=== PATIENT | female | born 1960 | race Caucasian/White ===

== ENCOUNTER → 2024-06-25 | Outpatient (CLI) | payer OTHER, SELFPAY ==
--- NOTE | 2024-06-25 | IMM_PTH ---
PATIENT: FRANCESCA SKELTON LOC: [facility] U#:[id number] AGE/SX: 63/F ROOM: RE06/25/[address]: Dr. Crescencio Hardy MD : 1960 BED: DIS: 06/25/2024 SPEC #: [id number] RECD: 06/27/24 10:55 STATUS: KAYLEY REQ #: [id number] BRENDA: 06/25/24 00:[address]: Crescencio Hardy DEPT: IMMUNOHISTOCHEMISTRY RECD BY: Siva Wu ENTERED: 06/27/24 10:56 SP TYPE: IMMUNO OTHR DR: TIBURCIO Acosta Tissues: Left breast, NOS Procedures: E-CAD (initial) CALPONIN-1 (add) CK8 (add) Pankeratin (add) P40 (add) PHYSICIAN & INSTITUTION [place] [id number] SPECIMEN INFORMATION: Tissue Source: Left breast tissue Clinical Info: Left breast tissue Specimen Number: [id number] CPT code: 80982,00638t6 METHODOLOGY: Deparaffinized sections of prefer/formalin-fixed tissue or PAP/DQ stained slides are incubated with monoclonal/polyclonal antibodies/oligonucleotide probes. Localization is made via biotin free immunoperoxidase method. Appropriate controls are performed and reacted as expected. Results on target cell population are indicated in the following table: RESULTS: ANTIBODY / CLONE RESULT E-Cad (ECH-6) positive AE1-3 (AE1/AE3/PCK26) positive CK8 (69bvlhE19) positive Calponin-1 (MK420E) negative P40 (BC28) negative These tests were developed and their performance characteristics determined by [facility]. They may not have been cleared or approved by the U.S. Food and Drug Administration. The FDA has determined that such clearance or approval is not necessary. The above immunohistochemical/dualISH markers are ordered and reviewed by the Pathologist. INTERPRETATION: Left breast tissue, core biopsy: Invasive ductal carcinoma. MIHAI. 06/30/2024
--- NOTE | 2024-06-25 13:40 | BRBX_PTH ---
PATIENT: FRANCESCA SKELTON LOC: [facility] U#:[id number] AGE/SX: 63/F ROOM: RE06/25/[address]: Dr. Crescencio Hardy MD : 1960 BED: DIS: 06/25/2024 SPEC #: [id number] RECD: 06/25/24 14:37 STATUS: KAYLEY CORNELIUSLucien #: [id number] BRENDA: 06/25/24 13:[address]: Crescencio Hardy DEPT: SURGICAL PATHOLOGY RECD BY: Tahmina Earl ENTERED: 06/26/24 08:09 SP TYPE: BREAST BX OTHR DR: TIBURCIO Acosta Tissues: Left breast, NOS Procedures: Surgery Specimen Level V HEADER OPERATION: Left breast biopsy PRE-OP DIAGNOSIS: Left breast mass TISSUE SUBMITTED: Left breast tissue Ischemic Time: 1 minute Fixation Time: 7 hours MICROSCOPIC DIAGNOSIS Left breast mass, core biopsy: Invasive ductal carcinoma. See cancer summary in the comment. SJ.mr 06/27/2024 COMMENT INVASIVE BREAST CANCER SUMMARY: Procedure: Core biopsy Specimen Laterality: Left Tumor site: Not specified Histologic type: Invasive ductal carcinoma, not otherwise specified Provisional Histologic grade: Glandular/tubule Differentiation Score: 1 Nuclear Pleomorphism Score: 1 Mitotic Rate Score: 1 Overall grade - Grade 1 (score 3) Tumor Size (greatest dimension): Invasive carcinoma measures 0.1cm greatest length. Ductal Carcinoma In situ: Not identified Angiolymphatic Invasion: Not identified Microcalcifications: Present in the non-neoplastic tissue Additional Findings: Fibrocystic changes and adenosis. Breast Marker Study: Not performed in biopsy due to small size of invasive ductal carcinoma and will be performed in excisional specimen. The above summary is in compliance with [employer] [place] Pathology (CAP) Cancer Protocols Checklist and [place] Joint Committee on Cancer (AJCC), Staging Manual, 8th Ed. Immunohistochemistry ([id number]) supports the above diagnosis. This case was discussed with Dr. Hardy on 06/30/2024. MICROSCOPIC DESCRIPTION Slides are reviewed. GROSS DESCRIPTION Received in fixative is one container labeled with the patient's name and designated Left breast tissue. The specimen consists of four fragments of tissue that in aggregate measure 2 x 0.7 x 0.1 cm. The specimen is totally submitted in one cassette. DEANN/ 06/26/2024 TC:0 CPT:55583
== END | disposition home or self-care (01) ==
PROVIDERS: Referring Provider Surgery; Visit Provider Surgery
DX: C50.912 Malignant neoplasm of unspecified site of left female breast (principal)
CPT/HCPCS: 88307; 88341; 88342

== ENCOUNTER 2024-07-17 15:21 | Observation (INO) | payer SELFPAY, OTHER ==
[2024-07-17] VITALS (14 sets, daily range): BP systolic 131–144; BP diastolic 63–85; PULSE 72–97; RESP 12–18; TEMP 36–37.1; O2SAT 95–100; BMI 27.0
--- NOTE | 2024-07-17 | IMM_PTH ---
PATIENT: FRANCESCA SKELTON LOC: MS3 U#:[id number] AGE/SX: 63/F ROOM: MI312 RE07/17/[address]: Dr. Crescencio Hardy MD : 1960 BED: 1 DIS: 07/18/2024 SPEC #: [id number] RECD: 07/23/24 11:14 STATUS: KAYLEY REQ #: [id number] BRENDA: 07/17/24 00:[address]: Crescencio Hardy DEPT: IMMUNOHISTOCHEMISTRY RECD BY: Siva Wu ENTERED: 07/23/24 11:16 SP TYPE: IMMUNO OTHR DR: TIBURCIO Acosta Tissues: A - Axillary lymph node, NOS B - Left breast, NOS Procedures: CALPONIN-1 (add) CK5-6 (add) CK7 (add) CK8 (add) E-CAD (add) HER2 CONCHA (add) KI-67 (add) P53 (add) OK (add) Pankeratin (initial) Pankeratin (add) P40 (add) ER (initial) PHYSICIAN & [address] [address] SPECIMEN INFORMATION: Tissue Source: A- Left axillary lymph node, B- Left breast Clinical Info: Invasive ductal carcinoma of left breast Specimen Number: [id number] A, B-7 CPT code: 55483z4,05353a0 ,[id number] METHODOLOGY: Deparaffinized sections of prefer/formalin-fixed tissue or PAP/DQ stained slides are incubated with monoclonal/polyclonal antibodies/oligonucleotide probes. Localization is made via biotin free immunoperoxidase method. Appropriate controls are performed and reacted as expected. Results on target cell population are indicated in the following table: RESULTS: ANTIBODY / CLONE RESULT Block A 1 AE1-3 (AE1/AE3/PCK26) negative CK7 (OV-TL12/30) negative Block A 2 AE1-3 (AE1/AE3/PCK26) negative CK7 (OV-TL12/30) negative Block B 7 E-Cad (ECH-6) positive CK8 (71syagV14) positive Calponin-1 (EI711A) negative CK5-6 (D5 & 1684) negative P40 (BC28) negative P53 (DO-7) negative (null pattern) Ki-67 (30-9) positive, low, ~10% MORPHOMETRIC ANALYSIS ER (clone 6F11) >95%, strong intensity OK (clone 16/1E2) >95%, moderate to strong intensity Her-2Neu (clone CB11) 2+ The prognostic test for HER2 is performed on formalin-fixed paraffin embedded tissue. A 3+ (positive) staining pattern is defined as intense, homogeneous, complete, circumferential membranous staining in >10% of contiguous tumor cells. A similar weak (2+) staining pattern is interpreted as equivocal. GEOFFREY follow-up testing is recommended for all equivocal cases. Positivity/negativity for ER/OK is reported if > or < 1% of the tumor cells are immuno- reactive, respectively. The ASCO/CAP criteria is used for scoring. Reference: Journal of Clinical Oncology, 2013; 31:3607-6952 & 2010; 16:1086-7784. Ischemic time: Less than one hour. Duration of fixation: __ Hrs; Sample Adequate: Yes. These assays have not been validated on decalcified tissues. Results should be interpreted with caution given the likelihood of false negativity on decalcified specimens or fixation greater than 72 hours. Alternative testing methods (FISH/dualISH for Her2; gene expression for ER) are recommended, if applicable. Please notify the laboratory if additional testing is required. These tests were developed and their performance characteristics determined by [facility]. They may not have been cleared or approved by the U.S. Food and Drug Administration. The FDA has determined that such clearance or approval is not necessary. The above immunohistochemical/dualISH markers are ordered and reviewed by the Pathologist. INTERPRETATION: A. Left axillary lymph node, biopsy: Two out of two lymph nodes, negative for metastatic carcinoma. B. Left breast, mastectomy: Invasive ductal carcinoma. Positive for estrogen receptors (favorable prognostic indicator). Positive for progesterone receptors (favorable prognostic indicator). Equivocal for overexpression of [id number]. See comment. B. COMMENT: Block will be sent to [facility] for Ofs9rkj by FISH. 07/24/2024
--- NOTE | 2024-07-17 09:42 | NM_ITS ---
PROCEDURE: LYMPH NODE INJECTION ONLY REASON FOR EXAM: Left breast cancer. TECHNIQUE: 600 microcuries of Lymphoseek was injected subdermal in the left upper breast. RADIOPHARMACEUTICAL: 600 microcuries of Tilmanocept COMPARISON: CORRELATION WITH EXISTING RELEVANT IMAGING STUDIES (i.e. x-ray, MRI, CT, etc.): No existing relevant imaging study available , patient did not have a previous relevant imaging study. FINDINGS: Successful subdermal injection. NM/Lymph Node Injection Only IMPRESSION: Successful subdermal injection for axillary node imaging. Reading Location: [id number]
--- NOTE | 2024-07-17 09:46 | EKG12_ITS ---
Test Reason : PREOP Blood Pressure : */* mmHG Vent. Rate : 71 BPM Atrial Rate : 71 BPM P-R Int : 176 ms QRS Dur : 76 ms QT Int : 408 ms P-R-T Axes : 78 77 77 degrees QTcB Int : 443 ms Normal sinus rhythm Normal ECG Confirmed by CARMEN BLAKE ([id number]), make up editor DAISHA GUEVARA ([id number]) on 07/21/2024 7:15:46 AM Referred By: Crescencio Hardy Confirmed By: CARMEN BLAKE
[2024-07-17] MEDS: 0.9% Normal Saline (1000mL) 1,000 ML 15 ML IV (10:12)
--- NOTE | 2024-07-17 10:36 | PCM.PRE.AN2 ---
ASA Classification* ASA Classification ASA Classification: 2 Assessment & Plan Anesthesia* Anesthesia Assessment Anesthesia Assessment: Discussed sedation and/or anesthesia options, risks, benefits, and alternatives with patient/parents/legal guardian/POA. Questions invited. The patient/parents/legal guardian/POA seems to understand and agrees to proceed with anesthesia plan. Reviewed the physical assessment, medical history, allergy history and patient home medications list prior to surgery/procedure/anesthetic and documented any changes. Performed airway and anesthesia risk assessments. Anesthesia Type Anesthesia Type: General History Source History Obtained from:: Patient and Chart Anesthesia Focused Assessment* Temperature: 97.8 F Pulse Rate: 72 Blood Pressure: 133/74 Respiratory Rate: 16 Pulse Ox: 100 Oxygen Delivery Method: Room Air Airway Assessment Mouth opens: >3 cm Mallampati Score: I Teeth Condition: Dentures, Lower and Upper Neck Range of motion (ROM): Full ROM Focused Labs Anesthesia Preop lab: CBC CHEMISTRY COAG Pre-Assessment Diagnosis/Proposed Procedure Planned Operative Procedure(s): (L) left Mastectomy w/SLN bx, blue dye/radiotracer, poss ax dissection Anesthesia History Anesthesia History - manager product management: Anesthesia History - manager product management Hx Hospitalization No 07/10/24 15:03 Any Problems With Anesthesia No 07/10/24 15:03 Cholinesterase deficiency No 07/10/24 15:03 You/Your Family Experience No 07/10/24 15:03 fever (hyperthermia) with Relationship Recent Exposure to Contagious No 07/17/24 09:54 Disease Does patient have nerve No 07/10/24 15:03 stimulator Patient instructed to have device shut off --Does patient have Pacemaker No 07/17/24 09:54 or ICD? When Was Last Pacemaker Check QUESTION #4 FULL TEXT: You/Your Family Experience fever (hyperthermia) with Anesthesia Any additional information?: No Last Oral Intake Last Oral intake: Last Oral Intake NPO since 06:00 07/17/24 09:54 Meds taken in AM with sips of No 07/17/24 09:54 water? Meds patient instructed to take am of surgery Any additional information?: No PONV PONV - manager product management: PONV - manager product management Female Yes 07/10/24 15:03 HX of Motion Sickness No 07/10/24 15:03 HX of N/V After Surgery No 07/10/24 15:03 Non-Smoker Yes 07/10/24 15:03 Duration of Surgery greater Yes 07/10/24 15:03 than 60 minutes Number of Risk Factors 3 07/10/24 15:03 PONV Score Moderate Risk 07/10/24 15:03 Any additional information?: No Height & Weight Height & Weight: Anesthesia: Height & Weight Height 5 ft 2 in 07/17/24 09:54 Weight: 67 kg 07/17/24 09:54 Body Mass Index (BMI) 27.0 07/17/24 09:54 Respiratory Assessment Respiratory Assessment - manager product management: Respiratory Tract Infection Hx - manager product management Hx Respiratory Tract Infection No 07/10/24 15:03 Any additional information?: No STOP Sleep Apnea STOP Sleep Apnea - manager product management: STOP Sleep Apnea - manager product management Hx Hypertension No 07/10/24 15:03 Hx Sleep Apnea No 07/10/24 15:03 CPAP BIPAP Do you snore loudly (louder No 07/10/24 15:03 than talking or can be heard Do you often feel tired/ No 07/10/24 15:03 fatigued/ sleepy during daytime? Has anyone observed you stop No 07/10/24 15:03 breathing during sleep? STOP Results Negative 07/10/24 15:03 QUESTION #5 FULL TEXT : Do you snore loudly (louder than talking or can be heard through closed doors)? 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 Specify any problems Hx of Preganancy in last 3 N/A 07/10/24 15:03 Months Nurse Filling Out Transfusion NBUCHER 07/10/24 15:03 & Questions: Date: 07/10/24 07/10/24 15:03 Time: 15:04 07/10/24 15:03 Patient unable to answer at this time (ie. confused, unrespo Any additional information?: No /Reproduction History /Reproductive History - manager product management: /Reproductive Hx- manager product management Hx Now No 07/10/24 15:03 Gestational Age (in weeks): EDC: Hx Hx Para Hx Section SAB No 07/10/24 15:03 Any additional information?: No Active Medications Active Medications: Current Medications Generic Name Dose Route Start Last Admin Trade Name Freq PRN Reason Stop Dose Admin Cefazolin Sodium 2 gm/ N/A 20 mls @ 400 mls/hr 07/17/24 11:30 IV 07/17/24 11:32 PREOP ONE Sodium Chloride 1,000 mls @ 15 mls/hr 07/17/24 09:45 07/17/24 10:12 IV 07/22/24 23:04 15 mls/hr .Q48H MAURICE Administration Protocol [facility] Medical History (Updated 07/10/24 @ 15:12 by Elizabeth Borges) Post-menopausal Wears glasses Wears dentures Arthritis Non-smoker Left breast mass Home Medications ?Medication ?Instructions ?Recorded ?Last Taken ?Type NK 06/25/24 Unknown History Allergy/AdvReac Type Severity Reaction Status Date / Time No Known Allergies Allergy Verified 07/10/24 15:02 Family History Mother Cancer brain Sister Cancer adenoid cancer Surgical History S/P pilonidal cyst excision Previous back surgery Social History (Updated 07/03/24 @ 12:50 by Evelia Barney LPN) Smoking Status: Never smoker alcohol intake: never substance use type: does not use Review of Systems (Anesthesia) ROS Narrative System reviewed and no additional complaints, except as documented. Physical Exam Const alert Orientation / Consciousness: awake Neck full ROM Resp normal respiratory effort Auscultation: clear to auscultation bilaterally Cardio regular rate, regular rhythm and no murmurs Extremity full ROM Neuro oriented x3 and moves all extremities
--- NOTE | 2024-07-17 12:00 | LYMN_PTH ---
PATIENT: FRANCESCA SKELTON LOC: MS3 U#:[id number] AGE/SX: 63/F [place]OM[place] [facility] RE07/17/[address]: Dr. Crescencio Hardy MD : 1960 BED: 1 DIS: 07/18/2024 SPEC #: [id number] RECD: 07/17/24 15:33 STATUS: KAYLEY RELucien #: [id number] BRENDA: 07/17/24 12:[address]: Crescencio Hardy DEPT: SURGICAL PATHOLOGY RECD BY: Siva Wu ENTERED: 07/17/24 15:34 SP TYPE: LYMPH NODE OTHR DR: TIBURCIO Acosta Tissues: LYMPH NODE BIOPSY Procedures: Frozen Section (charge) Surgery Specimen Level IV HEADER OPERATION: Left simple mastectomy with sentinel lymph node biopsy, blue dye / radiotracer PRE-OP DIAGNOSIS: Invasive ductal carcinoma of left breast TISSUE SUBMITTED: A- Left axillary lymph node, B- Left breast *long stitch- lateral , short stitch- superior* FROZEN SECTION DIAGNOSIS A. Left axillary sentinel lymph node, biopsy: Two out of two lymph nodes, negative for metastatic carcinoma. MIHAI. 07/17/2024 MICROSCOPIC DIAGNOSIS A. Left axillary sentinel lymph node, biopsy: Two out of two lymph nodes, negative for metastatic carcinoma. See comment. B. Left breast, mastectomy: Invasive ductal carcinoma. See cancer summary in the comment section. Lucila 07/23/2024 COMMENT A. The lymph nodes are negative for metastatic carcinoma on multiple H & E levels and immunohisto-chemical stains for cytokeratins ([id number]). B. BREAST CANCER SUMMARY Procedure - Total mastectomy Specimen laterality - Left Invasive tumor: Tumor site - Central lower portion Tumor size - 1.5 x 1.5 x 1cm Histologic type - Invasive ductal carcinoma, not otherwise specified Histologic grade (Preston grade): Glandular/tubular differentiation score - 3 Nuclear pleomorphism score - 3 Mitotic count score - 1 Overall grade - grade 2 (score of 7) Tumor focality - Single focus of invasive carcinoma Ductal carcinoma in situ - Not identified Lobular carcinoma in situ -Not identified Tumor extension: Skin - Tumor does not involve overlying skin Nipple - Ductal carcinoma in situ does not involve nipple epidermis Skeletal muscle - No skeletal muscle present in the specimen Margins: Margins are free of invasive carcinoma. Invasive carcinoma is 1.0 cm away from the closest inferior margin. Regional lymph nodes: Number of lymph nodes examined (sentinel and non-sentinel) - 2 Number of sentinel lymph nodes examined - 2 Number of lymph nodes with macrometastases, micrometastases or isolated tumor cells - 0 Distal metastasis- Not applicable Treatment effect - no known presurgical therapy. Lymphvascular invasion - Not identified Dermal lymphvascular invasion - Not identified Additional Pathologic Findings - - Fibrocystic changes, adenosis and ductal dilatation. - Intraductal hyperplasia with atypia. - Changes consistent with previous biopsy site. Biopsy site is noted at the edge of the tumor. Ancillary Studies: [id number] ER: positive (>95%, strong intensity) WA: positive (>95%, moderate to strong intensity) Kva2pgm: Equivocal (2+) Block will be sent to [facility] for Jpi4yab by FISH Ki67: positive, low, ~10% Microcalcifications - Present in invasive carcinoma and non-neoplastic tissue PATHOLOGIC STAGE: pT1c pN0(sn) pMx The above summary is in compliance with [employer] [place] Pathology (CAP) Cancer Protocols Checklist and [place] Joint Committee on Cancer (AJCC), Staging Manual, 8th Ed. Immunohistochemistry ([id number]) supports the above diagnosis. The tumor in the mastectomy specimen shows higher grade than the tumor in the biopsy specimen. Please make reference to previous specimen [id number] left breast mass, core biopsy with diagnosis of invasive ductal carcinoma. Case has been reviewed in consultation with Dr. Hernandez who concurs with the above diagnosis. IDC:FA MICROSCOPIC DESCRIPTION Slides are reviewed. GROSS DESCRIPTION A. Received fresh for frozen section diagnosis labeled with the patient's name is a specimen designated Left axillary sentinel lymph node. The specimen consists of two pieces of adipose tissue containing nodules, consistent with lymph nodes measuring 1.2 x 0.5 x 0.3cm and 0.6 x 0.3 x 0.2cm. Both pieces are submitted entirely for frozen section diagnosis and two cassettes with each cassette containing one lymph node. B. Received in fixative is one container labeled with the patient's name and designated Left breast. The specimen consists of a mastectomy specimen consisting of breast tissue with overlying skin ellipse. The breast tissue measures 16 x 12 x 4.5cm. Overlying skin ellipse measures 13.5 x 4.6cm. Nipple measures 1cm in greatest dimension. The skin surface shows blue dye discoloration. No skin lesion is identified. The specimen is oriented as follows: long stitch- lateral, short stitch- superior. The specimen is inked as follows: posterior - black, superior - blue, inferior - green, medial - red and lateral - orange. Sections reveal a baldwin indurated mass in the center lower quadrant of the central lower portion of the specimen measuring 1.5 x 1.5 x 1cm. This mass is 1cm away from the closest inferior margin and 1.2cm away from the second posterior margin. Sections of the rest of this specimen reveal baldwin-yellow adipose cut surfaces mixed with baldwin-white fibrous areas. Sections will be submitted after fixation. MIHAI. 07/18/2024 Generator Switchboard Operator sections are submitted in twelve cassettes as follows: 1- nipple, entirely submitted, 2- perpendicular medial, lateral and superior margins, 3- perpendicular posterior margin and skin, 4&5- tumor with closest inferior margin, 6&7- more section of tumor, tumor is submitted in its entirety, 8&9- printing sales representative sections adjacent to the tumor, 10-12- printing sales representative sections away from the tumor. Sections are submitted after additional fixation. MIHAI. 07/21/2024 TC:0 CPT:65797x2, 80086, 64795 ADDENDUM ADDENDUM ADDENDUM ADDENDUM ADDENDUM ADDENDUM ADDENDUM ADDENDUM ADDENDUM ADDENDUM ADDENDUM ADDENDUM ADDENDUM ADDENDUM ADDENDUM 07/29/2024 14:53 ADDENDUM 07/29/2024 14:53 ADDENDUM 07/29/2024 14:53 ADDENDUM 07/29/2024 14:53 ADDENDUM 07/29/2024 14:53 AUTOMATED BREAST CANCER HER2/CONCHA FISH ANALYSIS REPORT FROM [facility] - BLOCK B 7 HER2 FISH NEGATIVE / NOT AMPLIFIED HER2: CEP-17 ratio 1.3:1 Average HER2 Signal: 3.4 Average CEP-17 Signal: 2.6 Number of selected invasive cells scanned: 50 Please see complete Gen Path Report in the patient's EMR
--- NOTE | 2024-07-17 13:34 | PCM.HP.BLA ---
History and Physical Date of Admission: 07/17/24 Intake Vital Signs 06/25/2512:16 07/03/2511:50 Height 5 ft 2 in 5 ft 2 in Weight: 145 lb 148 lb BMI 26.5 27.1 BP 163/82 H 146/102 H Blood Pressure Location Rt brachial Lt brachial Position Sitting Sitting Respiration 16 16 Pulse 84 Pulse Source Monitor Temp 97.2 F L Temp Source Temporal Pulse Oximetry (%) 97 Oxygen Delivery Method room air Intake Visit Reasons: RESULTS, DISCUSS SURGERY Chief Complaint: results, discuss surgery Accompanied by: Is patient in pain?: No Allergies No Known Allergies Allergy (Unverified 07/03/24 12:51) Medications ?Medication ?Instructions ?Recorded ?Confirmed ?Type NK 06/25/24 07/03/24 History PFSH Medical History Left breast mass Surgical History S/P pilonidal cyst excision Previous back surgery Family History Mother Cancer brainSister Cancer adenoid cancer Social History (Updated 07/03/24 @ 12:50 by Evelia Barney LPN) Smoking Status: Never smoker alcohol intake: never substance use type: does not use HPI HPI HPI: Patient is a 63-year-old female with invasive ductal carcinoma of the left breast who is here to discuss surgery ROS General General: Yes fatigue and breast cancer; No weight change, appetite, colon cancer or weakness HEENT HEENT: No difficulty swallowing, eye injury, eye surgery, swollen glands or hoarseness Endo Endocrine: No thyroid disease, diabetes mellitus, thyroid cancer, Hair loss, heat intolerance or cold intolerance Skin Skin: No rash or changing moles Breast Breast: Yes left breast lump; No right breast lump, nipple discharge, breast pain, abnormal mammogram, abnormal US or breast enlargement Musc Musculoskeletal: No back problems, arthritis, rheumatoid arthritis, gout or joint pain Cardio Cardiovascular: No murmur, pacemaker, heart disease, atrial fibrillation, high blood pressure, heart attack, heart stent, palpitations, shortness of breat with exertion or chest pain Psych Psychiatric: No depression, anxiety or hearing voices Resp Respiratory: No shortness of breath, No sleep apnea, No cough, No COPD, No asthma, No emphysema and No wheezing Gastro Gastrointestinal: No abdominal pain, No nausea or vomiting, No diarrhea, No constipation, No blood in stool, No acid reflux, No hemorrhoids, No ulcers, No gallbladder problem and No black,tarry stools [place] Hematologic: No blood thinners, No blood disorders, No bleeding, No anemia and No blood clots Neuro Neurologic: Yes numbness, No tingling and No weakness Exam Const General: cooperative Orientation: alert and oriented x3 HENMT Head: normal to inspection Neck Neck: normal visual inspection and full ROM Chest Chest palpation & inspection: normal inspection of the chest Resp Effort & Inspection: normal respiratory effort Auscultation: clear to auscultation bilaterally Cardio Rate: regular rate Rhythm: regular rhythm GI Inspection: non-distended Palpation: soft and nontender Skin General: no rashes or lesions noted Neuro General: patient alert and patient oriented x3 Extrem General: full ROM Psych Appearance: grossly normal Mental Status: mental status grossly normal Assessment and Plan Assessment and Plan (1) Invasive ductal carcinoma of left breast: Status: Acute Plan: The patient was found to have a small invasive ductal carcinoma of the left breast. She does have some bruising from the biopsy. I recommended surgery for this. I went over partial mastectomy with sentinel lymph node biopsy and mastectomy with sentinel lymph node biopsy. I extensively discussed both and answered all the patient's questions. The patient would like a second opinion. The patient and her are deciding between mastectomy and partial mastectomy as they would like to avoid radiation. I discussed the procedure as well as the risks including but not limited to bleeding, infection, injury other organs, nerve injury, flap necrosis, hematoma formation or need for further surgery. Patient understands all the risks and will call me back after her second opinion to book if she would like to have surgery here. Crescencio Hardy MD Pager: [facility] [address] [place] [address], [address] [place] [address] Office: The patient has decided on a left mastectomy with sentinel lymph node biopsy. She would like to avoid radiation therapy and she would like to have mastectomy instead of partial mastectomy. I have examined the patient and the H&P has been reviewed. There are no clinical changes since date of exam.
[2024-07-17] MEDS: Cefazolin 2 GM in Syringe IV (13:51)
[2024-07-17] MEDS: 0.9% Normal Saline (Pres. free 10 ML Vial (14:15)
[2024-07-17] MEDS: Isosulfan Blue 1% 5 ML Vial (14:15)
--- NOTE | 2024-07-17 15:12 | PCM.POST.ANE ---
Anesthesia: Postop Eval I Current Vital Signs Temperature: 96.8 F Pulse Rate: 88 Blood Pressure: 141/78 Respiratory Rate: 18 Pulse Ox: 99 Oxygen Delivery Method: Nasal Cannula Oxygen Flow Rate (L/min): 2 Assessment Airway patent: Yes Spontaneous unlabored respirations: Yes Mental status: Asleep nausea: No Vomiting: No Anesthesia Complication: No Fluid Hydration Crystalloid volume administer (ml): 1,200 Total IV fluid infused: 1,200 Progress Note Anesthesia document: Postop Eval 1 completed: Yes
--- NOTE | 2024-07-17 15:17 | PCM.OPRPT ---
Operative Report (Standard) Operative Information Date of Procedure: 07/17/24 Pre-Operative Diagnosis: Left breast cancer Post-Operative Diagnosis: Left breast cancer Surgery/Procedure Performed: 1. Left simple mastectomy 2. Left sentinel lymph node biopsy 3. Injection of blue dye vp integration: Yes Screw Machine Set Up Operator: Rosette Masterson Tasks completed by first aid attendant: Opening, Closing and Retracting Type of Anesthesia: General/Regional RN Documented Start/Stop Times: Operation Date: 07/17/24 11:30 Case Time Into Pre-Op 07/17/24 09:42 Out of Pre-Op 07/17/24 13:39 Anesthesia Start 07/17/24 13:42 Into Room 07/17/24 13:42 Procedure Start 07/17/24 14:02 Procedure End 07/17/24 15:04 Anesthesia End 07/17/24 15:06 Out of Room 07/17/24 15:06 Into Recovery 07/17/24 15:10 Procedure Start Time: 14:02 Procedure Stop Time: 15:04 Select all DRAINS/GRAFTS/IMPLANTS that apply: Drains Drain details: RICHELLE to bulb suction Estimated Blood Loss: 20 Specimen collected: Yes Description of specimen(s) removed: 1. Left sentinel lymph nodes 2. Left breast Description of surgery: Patient was brought back to the operating room and general anesthesia was induced. The left breast was prepped and then 5 cc of Lymphazurin was injected in the subareolar spaces followed by 5 cc of saline. The breast was massaged. Next the chest was prepped and draped in the usual sterile fashion. An elliptical incision was marked around the nipple and then incised. The dissection of the lateral portion was carried out first and then using the flaps followed down to the axilla. The axilla was opened and inspected with the probe. 1 blue lymph node was identified and 1 radioactive lymph node was identified. They were both removed. There was no other further radioactive or blue lymph nodes or palpable lymph nodes. This came back negative on frozen section. Next attention was paid to the breast. The superior flap was created using electrocautery and then the inferior flap was created using electrocautery. Next the breast was taken off the pectoral muscle including the pectoral fascia and sent for pathology. The cavity was irrigated and suctioned and hemostasis was obtained using electrocautery. A 15 Australian round drain was placed through a poke hole incision and into the cavity and sutured to the skin using 3-0 nylon. Next the skin was reapproximate using interrupted 3-0 Vicryl sutures and a running 4-0 Monocryl suture. Dermabond was applied. Patient was awakened and taken to PACU in stable condition tolerated the procedure well. Surgical Findings: None Complications Complications: No Admit VTE Documentation VTE Mechan Device Prophylaxis: SCD's
--- NOTE | 2024-07-17 16:23 | POSTOPAN2_ITS ---
Anesthesia Postop Eval I Sum Postop Eval Completion status Anesthesia document: Postop Eval 1 completed: Yes Anesthesia Postop Eval I Summary Anesthesia Postop Eval I Summary: Anesthesia Postop Eval I: Assessment Summary Airway patent Yes 07/17/24 15:13 [email or web address] Spontaneous unlabored Yes 07/17/24 15:13 [email or web address] [email or web address] respirations Mental status Asleep 07/17/24 15:13 [email or web address] nausea No 07/17/24 15:13 [email or web address] [email or web address] Vomiting No 07/17/24 15:13 [email or web address] [email or web address] Anesthesia Postop Eval I: Fluid Summary Crystalloid volume administer 1,200 07/17/24 15:13 [email or web address] (ml) Colloids volume administered ( ml) Blood Product volume administered (ml) Total IV fluid infused 1,200 07/17/24 15:13 MALTHOUSE [email or web address] Anesthesia Postop Eval I: Summary Notes Anesthesia Complication No 07/17/24 15:13 [email or web address] [email or web address].[email or web address] Anesthesia Complication Comment: Post-operative progress note Anesthesia: Postop Eval II Evaluation Mental status: Awake and Calm Pain Level: 1 nausea: No Vomiting: No Complications Anesthesia Complication: No
--- NOTE | 2024-07-17 16:23 | PCM.POSTANE2 ---
Anesthesia Postop Eval I Sum Postop Eval Completion status Anesthesia document: Postop Eval 1 completed: Yes Anesthesia Postop Eval I Summary Anesthesia Postop Eval I Summary: Anesthesia Postop Eval I: Assessment Summary Airway patent Yes 07/17/24 15:13 FOOD [email or web address] Spontaneous unlabored Yes 07/17/24 15:13 FOOD [email or web address].[email or web address] respirations Mental status Asleep 07/17/24 15:13 FOOD [email or web address] nausea No 07/17/24 15:13 FOOD [email or web address] Vomiting No 07/17/24 15:13 FOOD [email or web address].[email or web address] Anesthesia Postop Eval I: Fluid Summary Crystalloid volume administer 1,200 07/17/24 15:13 FOOD [email or web address] (ml) Colloids volume administered ( ml) Blood Product volume administered (ml) Total IV fluid infused 1,200 07/17/24 15:13 FOOD [email or web address].[email or web address] Anesthesia Postop Eval I: Summary Notes Anesthesia Complication No 07/17/24 15:13 FOOD [email or web address].JORGE Anesthesia Complication Comment: Post-operative progress note Anesthesia: Postop Eval II Evaluation Mental status: Awake and Calm Pain Level: 1 nausea: No Vomiting: No Complications Anesthesia Complication: No
[2024-07-17] MEDS: Lactated Ringers 1,000 ML 50 ML IV (17:15)
[2024-07-17] MEDS: Morphine 2 MG/ML Syringe IV (17:22)
[2024-07-17] MEDS: Acetaminophen 325 MG Tablet 650 MG PO (20:47)
[2024-07-18 00:34] VITALS: BP 106/44; PULSE 80; RESP 16; TEMP 36.4; O2SAT 96
[2024-07-18] MEDS: Acetaminophen 325 MG Tablet 650 MG PO ×3 (00:44→11:29)
[2024-07-18] MEDS: Lactated Ringers 1,000 ML 50 ML IV (02:55)
[2024-07-18 05:11] VITALS: BP 106/55; PULSE 79; RESP 16; TEMP 36.4; O2SAT 98
--- NOTE | 2024-07-18 07:34 | PN.SURG_ITS ---
Subjective Subjective Patient is doing well with no issues. Her pain is well-controlled on Tylenol. Objective Data Objective Data Vital Signs: Vital Signs Temp Pulse Resp BP Pulse Ox O2 Del Method O2 Flow Rate 97.5 F L 79 16 106/55 L 98 Room Air 2 07/18/24 05:11 07/18/24 05:11 07/18/24 05:11 07/18/24 05:11 07/18/24 05:11 07/18/24 05:11 07/17/24 15:20 Oxygen Flow Rate (L/min) 2 Oxygen Delivery Method Room Air Weight: 147 lb 11.355 oz Body Mass Index (BMI) 27.0 Intake & Output: Intake and Output for Last 24 Hours 07/16/24 07/17/24 07/18/24 23:59 23:59 23:59 Intake Total 1426 / 1426 483.33 / 483.33 Output Total 260 / 260 320 / 320 Balance 1166 / 1166 163.33 / 163.33 Radiography Diagnostic Testing: Radiology Impression [place] Node 07/17/24 09:42 IMPRESSION: Successful subdermal injection for axillary node imaging. Reading Location: [facility] Physical Exam Const oriented x3 and no apparent distress Resp normal respiratory effort GI soft to palpation and non-tender Assessment & Plan Assessment/Plan (1) Invasive ductal carcinoma of left breast: PLAN: Patient is doing well. Her incision appears to be doing well as well. There is no ecchymosis or erythema. Her drain is serosanguineous. I will discharge her home today. Follow-up in 1 week. Record drainage amounts. Crescencio Hardy MD Pager: [facility] [address] [place] [address], [address] [place] [address] Office:
--- NOTE | 2024-07-18 07:34 | PCM.DC.SUM ---
Providers Date of Admission: 07/17/24 Primary Care Physician: TIBURCIO Acosta Consultations 07/17/24 15:20 Consult: Onc/Wound/employee relations advisor Routine Comment: Reason for Consult:: drain teaching Reason For Visit: left Mastectomy w/SLN bx, blue dye/radiotracer, po Diagnosis Discharge Diagnosis (1) Invasive ductal carcinoma of left breast: Status: Acute Code(s): C50.912 - Malignant neoplasm of unspecified site of left female breast Plan: Patient is doing well. Her incision appears to be doing well as well. There is no ecchymosis or erythema. Her drain is serosanguineous. I will discharge her home today. Follow-up in 1 week. Record drainage amounts. Crescencio Hardy MD Pager: [facility] [address] [place] [address], [address] [place] [phone] Office: Medications at Discharge Home Medications acetaminophen 325 mg tablet 650 mg (2 x 325 mg) PO Q4H PRN PRN Pain 1-10 Or Fever #0 tabs 07/18/24 oxycodone 5 mg tablet 5 - 10 mg (1 - 2 x 5 mg) PO Q4H PRN PRN Pain Score 1-10 5 days #10 tabs 07/18/24 Hospital Course Summary of Care Provided Hospital Course: Patient had mastectomy for breast cancer. She was admitted to the floor postoperatively and discharged the next day after tolerating a diet and her pain being well-controlled. Drain teaching was performed. Patient will follow-up in 1 week for drain removal. Weight / BMI Weight Weight: 147 lb 11.355 oz Body Mass Index (BMI) 27.0 Radiography Diagnostic Testing: Radiology Impression [place] Node 07/17/24 09:42 IMPRESSION: Successful subdermal injection for axillary node imaging. Reading Location: [id number] Instructions Discharge Diet: No restrictions Discharge Activity: May Not Drive (for 2-3 days or while taking narcotic pain medications.) May shower in (days): 1 Lifting Restrictions: 15 lbs for 2 weeks Call your doctor if your incision/area has: Continuous Slow Oozing and Increased Redness Call your doctor if you observe: Fever of 101 or Higher Suture Line Care: Avoid Pulling/Pushing and Avoid Pinching/Bending Cleanse incision/area with: Soap & Water Drain: Suction Additional Dressing/Incision Instructions: Use bulky dressing and surgical bra for compression. Empty drain twice a day and record outputs Okay to sponge bathe over drain Use Tylenol and ibuprofen for pain control, oxycodone for breakthrough pain. MiraLAX for any constipation DC O2, CPAP, BIPAP Needs Home O2 Discharge instructions: No DC home with Oxygen: No Please Follow Up With: Crescencio Hardy MD When: Please call to schedule 1 week follow up appointment. [phone] Meaningful Use Info Meaningful Use Meaningful Use Diagnoses (Choose all that apply): None applicable Ischemic Stroke Statin Dosing Therapy Reference: STATIN DOSE THERAPY REFERENCE: * Patients > 75 years receive moderate or high dose statin therapy. * Patients 75 years or YOUNGER should receive HIGH intensity statin dose unless contraindicated. You will be required to document reason for non-treatment if statin daily dose does not meet guidelines. HIGH DOSE STATIN THERAPY DAILY Atorvastatin > than or = to 40 mg Rosuvastatin > than or = to 20 mg Amlodipine + Atorvastatin > than or = to 2.5/40 mg Ezetimibe + Simvastatin 10/80 mg Simvastatin 80mg Discharge Plan Admission Admit Date/Time: 07/17/24 15:21 Attending Provider: Crescencio Hardy Primary Care Provider: Keysha Horta Discharge Orders/Prescriptions Prescriptions: New acetaminophen 325 mg Tablet 650 mg PO Q4H PRN PRN (Reason: Pain 1-10 Or Fever) Qty: 0 0RF oxycodone 5 mg Tablet 5 - 10 mg PO Q4H PRN PRN (Reason: Pain Score 1-10) 5 Days Qty: 10 0RF Referrals / Follow Up: Keysha Horta PA [Primary Care Provider] - Disposition Disposition (needs filled in before D/C Order can be placed): Home, Self Care
[2024-07-18 08:45] VITALS: BP 115/61; PULSE 75; RESP 16; TEMP 36.4; O2SAT 100
--- NOTE | 2024-07-18 09:01 | CASEMGMT ---
RN CM into pt room, pt sitting up in bed in no distress with at bedside. Discussed drain care with pt and wound nurse entering room to do teaching. Pt aware that if she doesn't feel comfortable with drain care after education to contact the RN CM. Pt verbalizes understanding. Pt at bedside. Pt reports she has transportation home.
== END 2024-07-18 12:05 | disposition home or self-care (01) ==
LOC: SDC 15:39 → MS3 15:39
PROVIDERS: Admitting Provider Surgery; Referring Provider Surgery; Visit Provider Surgery
PROC: (CPT 19307; principal; 2024-07-17 11:15)
DX: C50.912 Malignant neoplasm of unspecified site of left female breast (principal)
CPT/HCPCS: 19303; 38900; 38525; 00400; 38792; 88305; 88331; 88341; 88342; 93005; 94668; 96374; 99221; A4648; A9520; G0378; Q9968